=== PATIENT | female | born 1990 | race Caucasian/White ===

== ENCOUNTER 2021-03-10 19:54 | Emergency (ER) | payer MEDICAID ==
[~2021-03-10] VITALS: Ht 160 cm; Wt 68.0 kg
[2021-03-10 20:21] VITALS: BP 127/76
[2021-03-10] MEDS ORDERED: IBUP-1955 PO (21:24)
[2021-03-10] MEDS ORDERED: ACETAMINOPHEN 325 MG TABLET ONE (21:30)
[2021-03-10] MEDS ORDERED: ACETAMINOPHEN 325 MG TABLET PO ONE (21:30)
== END 2021-03-10 21:49 | disposition home or self-care (01) ==
LOC: ER 19:59
DX: B34.9 Viral infection, unspecified (principal); Z20.828 Contact with and (suspected) exposure to other viral communicable diseases; M79.7 Fibromyalgia

== ENCOUNTER 2021-03-20 12:49 | Emergency (ER) | payer MEDICAID ==
[~2021-03-20] VITALS: Ht 160 cm; Wt 65.3 kg
[~2021-03-20 12:49] MED LIST: IBUP-1955 PO
[2021-03-20 13:00] VITALS: BP 108/73
--- NOTE | 2021-03-20 13:11 | NUR ---
The patient bibs for covid+ 03/11/21, c/o sob 96% on room air. Respiration regular and unlabored. Will continue to monitor the patient.
[2021-03-20] MEDS ORDERED: AZIT250T13 PO (14:07)
[2021-03-20] MEDS ORDERED: DEXA4TAB PO (14:07)
== END 2021-03-20 14:37 | disposition home or self-care (01) ==
LOC: ER 12:49
DX: U07.1 COVID-19 (principal); J12.82 Pneumonia due to coronavirus disease 2019; M79.7 Fibromyalgia
CPT/HCPCS: 71045-TC